=== PATIENT | male | born 1975 | race Asian ===

== ENCOUNTER 2023-04-09 17:49 | Emergency (ER) | payer OTHER, MEDICAID, SELFPAY ==
[2023-04-09 17:50] VITALS: BP 124/96; PULSE 84; RESP 18; TEMP 35.8; O2SAT 98; BMI 24.5
--- NOTE | 2023-04-09 18:03 | EX.ED.VISEXT ---
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 Tetanus up-to-date. No medical problems. No medications that he takes. No known allergies. This was a pet owned by the people in the house. No indication or suspicion of rabies with this. No other injury. ROS ROS ED Constitutional Constitutional ED: Denies chills or fever(s) Cardiovascular Cardiovascular: Denies chest pain Gastrointestinal Gastrointestinal: Denies nausea or vomiting Musculoskeletal Musculoskeletal: Reports myalgias and other Details: See history of present illness. Integumentary Reports other Details: See history of present illness. Neurologic Neurologic: Denies paresthesias or weakness Endocrine Endocrinology: Denies polydipsia or polyuria Hematologic/Lymphatic Hematologic/Lymphatic: Denies easy bleeding, easy bruising or lymphadenopathy Allergic/Immunologic Allergic/Immunologic ED: Denies urticaria PFSH PFSH Home Medications amoxicillin 875 mg-potassium clavulanate 125 mg tablet 1 tab PO Q12H #10 TABLETS 04/09/23 [Rx Last Taken Unknown] Allergy/AdvReac Type Severity Reaction Status Date / Time No Known Allergies Allergy Verified 04/09/23 17:50 EXAM Physical Exam Narrative Exam Narrative: General: Patient awake alert filling out forms no acute distress. HEENT: No sign of trauma. Cardiorespiratory shows easy unlabored breathing with normal saturations and normal heart rate. Extremities do show some injury to right posterior calf. It sounds like the dog bit him through his clothing. It does just break the skin in the back of the calf. It is a small hole about 2 mm. Not actively bleeding. No notable swelling. Const Vital Signs: 04/09/23 17:50 Temperature 96.4 F L Temperature Source Temporal Pulse Rate 84 Respiratory Rate 18 Blood Pressure 124/96 H Blood Pressure Mean 105 Pulse Ox 98 Oxygen Delivery Method Room Air MDM MDM MDM Narrative Medical decision making narrative: This is a domesticated animal living in a house with people and I feel the risk of rabies is exceedingly low. However, this dog did just break the skin. Considering this we will do a short course of antibiotics for about 5 days. If redness pain swelling drainage develop he may need an extended course. Discharge Plan Triage Chief Complaint: Bite ED Provider: Noah Moeller Dx/Rx/DC Orders Clinical Impression: Dog bite of right lower leg Instructions: ED Dog Bite Prescriptions: New amoxicillin-pot clavulanate [amoxicillin-pot clavulanate] 875-125 mg tablet 1 tab PO Q12H Qty: 10 0RF Primary Care Provider: NOT,DEFINED Referrals: Harrison Slaughter MD [Med Staff - Active Staff] - 3-5 Days if not improving NOT,DEFINED [Primary Care Provider] - Disposition Disposition: Home, Self Care
[2023-04-09] MEDS: Amox/Clavulanate 875 MG Tablet PO (18:25)
== END 2023-04-09 18:40 | disposition home or self-care (01) ==
LOC: ED 18:19
PROVIDERS: Emergency Provider Emergency Medicine; Visit Provider Emergency Medicine
DX: S81.851A Open bite, right lower leg, initial encounter (principal); W54.0XXA Bitten by dog, initial encounter; Y93.89 Activity, other specified; Y99.0 Civilian activity done for income or pay; Y92.89 Other specified places as the place of occurrence of the external cause
CPT/HCPCS: 99283